=== PATIENT | male | born 1985 | race Caucasian/White ===

== ENCOUNTER 2025-03-21 18:13 | Emergency (ER) | payer SELFPAY ==
--- NOTE | ~2025-03-21 | XR_ITS ---
EXAMINATION: XR chest 1V portable DATE: 03/21/2025 18:37 INDICATION: Dizziness. Possible overdose. TECHNIQUE: frontal view of the chest was obtained. COMPARISON: None FINDINGS: The lungs are clear with no focal airspace opacities, pulmonary edema, pleural effusion or pneumothorax. The cardiomediastinal silhouette is normal. Visualized bones and soft tissues are unremarkable. IMPRESSION: 1. Normal chest radiograph. Reviewed, dictated and finalized at location A. IMPRESSION: 1. Normal chest radiograph.
[2025-03-21 18:12] VITALS: PULSE 110; RESP 15; TEMP 36.8; O2SAT 100
[2025-03-21 18:18] VITALS: PULSE 105
--- NOTE | 2025-03-21 18:19 | ECG_ITS ---
Test Date: 2025-03-21 18:25:42 Measurements Intervals [place] Rate: 107 P: 76 RI: 135 QRS: 99 QRSD: 101 T: 65 QT: 313 QTc: 419 Interpretive Statements SINUS TACHYCARDIA RIGHT AXIS DEVIATION POSSIBLE LEFT ATRIAL ENLARGEMENT ABNORMAL ECG No previous ECG available for comparison Electronically Signed On 03-21-2025 19:20:24 CDT by Stanley Sparks D.O.
--- NOTE | 2025-03-21 18:29 | ED.OVERDOSE ---
HPI - Overdose General Chief Complaint: Overdose Stated Complaint: ingested drugs History of Present Illness HPI Narrative: Patient is a 39-year-old male who presents to the ER following an accidental overdose. Per EMS, patient was in police custody and being interrogated when he ingested an unknown substance. Patient reports he believes it was meth, heroin, and Fentanyl. He reports afterwards he felt dizzy, nauseated and have blurry vision so EMS was called. Patient denies any medical history relevant to this ER visit. He denies any chest pain, shortness of breath, or recent fevers. Related Data Allergies Allergy/AdvReac Type Severity Reaction Status Date / Time No Known Allergies Allergy Verified 03/21/25 18:46 Review of Systems Review of Systems: All systems reviewed & are unremarkable except as noted in HPI and below PMFSH Social History Social History Substance use type: heroin, opiates and methamphetamine Exam Narrative: GENERAL: Well appearing, well-nourished, non-toxic, in no acute distress. HEAD: Normocephalic, atraumatic. NECK: Supple. No adenopathy, no masses. RESPIRATORY: Airway patent, respirations nonlabored. Clear to auscultation bilaterally, no rales, rhonchi, wheezing. CARDIOVASCULAR: Regular rate and rhythm without murmurs, rubs, or gallops. Peripheral pulses 2+ and equal bilaterally. ABDOMINAL: Soft, nontender, nondistended, no hepatosplenomegaly. Normoactive BS. MUSCULOSKELETAL: Moves all extremities. Strength/ROM intact without gross deformities. SKIN: Warm, dry, normal color. No rashes. NEURO: A&O X3. Speech clear. Cranial nerves II-XII intact. No ataxic movements. PSYCHIATRIC: Appropriate mood and affect. Normal interaction. Course Vital Signs Vital signs: Vital Signs Temperature 36.8 C 03/21/25 18:12 Pulse Rate 110 H 03/21/25 18:12 Respiratory Rate 15 03/21/25 18:12 Pulse Oximetry 100 03/21/25 18:12 Oxygen Delivery Autopap 03/21/25 18:12 Temperature 36.8 C 03/21/25 18:12 Pulse Rate 105 H 03/21/25 18:18 Respiratory Rate 15 03/21/25 18:12 Pulse Oximetry 100 03/21/25 18:12 Oxygen Delivery Autopap 03/21/25 18:12 MDM - Overdose MDM Narrative Medical decision making narrative: Patient is a 39-year-old male who presents to the ER following an accidental overdose. Per EMS, patient was in police custody and being interrogated when he ingested an unknown substance. Patient reports he believes it was meth, heroin, and Fentanyl. He reports afterwards he felt dizzy, nauseated and have blurry vision so EMS was called. Patient denies any medical history relevant to this ER visit. He denies any chest pain, shortness of breath, or recent fevers. Patient has chosen to refuse further care. Risks of an incomplete evaluation and treatment were discussed with the patient, including potential for or permanent disability. Patient seems to understand these risks, but still desires to refuse further care. Patient recommended to follow up with PCP in the next possible interval. Specifically, patient was told they can return to the ED at any time to resume care. Differential Diagnosis Differential diagnosis: Likely cocaine intoxication, poisoning by opiate or related narcotic, drug overdose and accidental drug ingestion Lab Data Attestation: I reviewed the patient's lab results. 03/21/25 18:51 03/21/25 18:51 Labs: Lab Results 03/21/25 03/21/25 Range/Units 18:49 18:51 WBC 9.1 (4.5-10.0) K/mm3 RBC 4.78 (4.6-6.20) M/mm3 Hgb 15.0 (14.0-18.0) g/dL Hct 45.4 (42.0-52.0) % MCV 95.0 (80-100) fl MCH 31.4 (26-34) pg MCHC 33.0 (32-36) g/dl RDW 11.9 (11.5-14.5) % Plt Count 220 (150-375) k/mm3 MPV 10.0 (7.4-10.4) fl Immature Gran % (Auto) 0.3 (0-0.5) % Neut % (Auto) 73.7 H (45.5-73.1) % Lymph % (Auto) 14.5 L (18.3-44.2) % [place] % (Auto) 8.2 (2.6-8.5) % Eos % (Auto) 2.7 (0-4.4) % Baso % (Auto) 0.6 (0.2-1.2) % Lymph # (Auto) 1.31 (0.9-3.2) K/mm3 [place] # (Auto) 0.7 H (0.1-0.6) K/mm3 Eos # (Auto) 0.2 (0-0.3) K/mm3 Baso # (Auto) 0.1 (0.0-0.1) K/mm3 Abs Immat Gran (auto) 0.03 (0.00-0.031) K/mm3 Absolute Neuts (auto) 6.7 (1.3-6.7) K/mm3 Absolute Nucleated RBC 0.000 (0.0-0.012) K/mm3 Nucleated RBC % 0.0 (0.0-0.2) % PT Pending INR Pending APTT Pending Sodium Pending Potassium Pending Chloride Pending Carbon Dioxide Pending Anion Gap Pending BUN Pending Creatinine Pending Estim Creat Clear Calc Pending Estimated GFR Pending Glucose Pending Calcium Pending Total Bilirubin Pending AST Pending ALT Pending Alkaline Phosphatase Pending Total Creatine Kinase Pending Troponin I Pending Total Protein Pending Albumin Pending TSH Pending Urine Color Yellow (Yellow) Urine Appearance Clear (Clear) Urine pH 6.0 (5.0-9.0) Ur Specific [place] 1.019 (1.001-1.035) Urine Protein 1+ H (Negative) mg/dL Urine Glucose (UA) Negative (Negative) mg/dL Urine Ketones Negative (Negative) mg/dL Ur Blood (Man) 1+ H (Negative) Urine Nitrate Negative (Negative) Urine Bilirubin Negative (Negative) Urine Urobilinogen 0.2 (<2.0) mg/dL Leukocyte Esterase Rfl Negative (Negative) RO/UL Urine RBC 3-5 H (0-2) /hpf Urine WBC 0-5 (0-3) /hpf Ur Squamous Epith Cells None seen (Few) /hpf Urine Bacteria None seen /hpf Urine Casts 0-2 Urine Opiates Screen Pending Urine Methadone Screen Pending Ur Barbiturates Screen Pending Ur Phencyclidine Scrn Pending Ur Amphetamine Screen Pending U Benzodiazepines Scrn Pending Urine Cocaine Screen Pending U Cannabinoids Screen Pending Ethyl Alcohol < 10 (<10) mg/dL Discharge Plan Discharge Clinical Impression: Drug overdose Patient Disposition: [facility] After Seen by Prov Patient Language: [place]
[2025-03-21] MEDS: SODIUM CHLORIDE 0.9% IV 1,000 ML 999 ML IV CONT (18:46)
--- NOTE | 2025-03-21 18:57 | PC.NURSE ---
Pt pulled out own IV, pt has ride and states he does not want to be seen. Pt ambulated out w/ steady gait. Pt declined exit VS or AMA paperwork. Pt is A&Ox4.
[2025-03-21 19:00] LABS: Add Urine Microscopic? YES; Appearance Urine Clear (Clear); Glucose Urine UA Negative (Negative); Leukocyte Esterase Ur Negative LEU/UL (Negative); Nitrate Urine Negative (Negative); Non Pathogenic Casts 0-2; Specific Grav Ur 1.019 (1.001-1.035)
[2025-03-21 19:03] LABS: Hematocrit 45.4 % (42.0-52.0); Hemoglobin 15.0 g/dL (14.0-18.0); Immature Granulocyte Percent A 0.3 % (0-0.5); Lymphocytes Absolute Auto 1.31 K/mm3 (0.9-3.2); Mean Corpuscular HGB Conc 33.0 g/dl (32-36); Mean Corpuscular Hemoglobin 31.4 pg (26-34); Mean Corpuscular Volume 95.0 fl (80-100); Nucleated Red Blood Cells Absolute Auto 0.000 K/mm3 (0.0-0.012); Nucleated Red Blood Cells Perc 0.0 % (0.0-0.2); Platelet Count Result 220 k/mm3 (150-375); Red Blood Count 4.78 M/mm3 (4.6-6.20); White Blood Count 9.1 K/mm3 (4.5-10.0)
[2025-03-21 19:18] LABS: INR 1.0; Partial Thromboplastin Time 25.7 Seconds (22.3-36.8); Prothrombin Time 13.0 Seconds (11.1-14.7)
[2025-03-21 21:01] LABS: Cannabinoid Screen Urine Positive (Negative)
[2025-03-21 21:06] LABS: Alanine Aminotransferase 19 U/L (6-50); Albumin Level 4.2 g/dL (3.5-5.1); Alkaline Phosphatase 58 U/L (38-126); Anion Gap 3 mmol/L (4-12); Aspartate Amino Transferase 20 U/L (17-59); Bilirubin,Total 0.3 mg/dL (0.2-1.3); Blood Urea Nitrogen 10 mg/dL (9-20); Calcium 9.6 mg/dL (8.4-10.2); Carbon Dioxide 30 mmol/L (22-30); Chloride 103 mmol/L (98-107); Creatine Kinase 100 U/L (55-170); Estimated CRCL calculation 87 ml/min; Estimated Glomerular Filt Rate > 60; Glucose 110 mg/dL (65-110); Potassium 4.1 mmol/L (3.4-5.0); Sodium 136 mmol/L (137-145); Total Protein 7.0 g/dL (6.3-8.2)
[2025-03-21 21:18] LABS: Troponin I < 0.012 ng/mL (0.000-0.034)
[2025-03-21 21:37] LABS: Thyroid Stimulating Hormone 1.380 uIU/mL (0.465-4.680)
== END 2025-03-21 19:27 | disposition left against medical advice (07) ==
LOC: ANHED 19:01
PROVIDERS: Emergency Provider Registered Nurse
DX: T50.902A Poisoning by unspecified drugs, medicaments and biological substances, intentional self-harm, initial encounter (principal); R00.0 Tachycardia, unspecified
CPT/HCPCS: 36415; 71045; 80053; 80307; 81001; 82077; 82550; 84443; 84484; 85025; 85610; 85730; 93005; 96360; 99284; J7030